=== PATIENT | male | born 1950 | race Caucasian/White ===

== ENCOUNTER 2017-01-26 07:20 | Day surgery (SDC) | payer OTHER ==
[2017-01-26] MEDS ORDERED: LIDOCAINE 1% 20 ML MDV ID ONE (07:51)
[2017-01-26] MEDS ORDERED: LIDOCAINE 2% 20 ML MDV ONE (07:51)
[2017-01-26] MEDS ORDERED: VERSED ONE (09:50)
[2017-01-26] MEDS ORDERED: LIDOCAINE HCL 2% LUER-JET ONE (09:50)
[2017-01-26] MEDS ORDERED: DIPRIVAN 20 ML VIAL IVP ONE (09:50)
[2017-01-26 12:17] VITALS: BP 133/69; TEMP 97.8
--- NOTE | 2017-01-26 15:18 | OP ---
INDICATIONS FOR PROCEDURE: 66 year old gentleman presents for colonoscopy examine. He has a history of abnormalis polyps with colonoscopy three years ago. Also has a history of heartburn, regurgitation. He had biopsies which were negative for Tran's three years. He presents now for endoscopy evaluation for heart burn. He tells that he feels better since getting back on PPI therapy three weeks ago. MEDICATIONS: SEE ANESTHESIA NOTES. PROCEDURE: 1. ENDOSCOPY WITH EDUAR BIOPSY, ESOPHAGEAL BIOPSY 2. COLONOSCOPY, SNARE POLYPECTOMY. REPORT: The risks, benefits, alternatives and limitations were discussed in detail with the patient. Informed consent was obtained. After adequate sedation was achieved, the video endoscope was introduced in the posterior pharynx and esophagus under direct vision and easily advanced down to the second portion of the duodenum. I then slowly withdrew. The duodenal mucosa appeared unremarkable as did the duodenal bulb. The antrum body is unremarkable. The scope was retroflexed to look at the cardia and fundus which was unremarkable. Two biopsies from the antral wall and body obtained for H.Pylori testing. There is minimal erythema present. The scope was anteflexed and withdrawn back through the esophagus there were slight irregularities to it otherwise it was right at the GE junction at the diaphragmatic hiatus. Biopsies were obtained of the GE junction for histological view. The esophagus was otherwise unremarkable. The patient tolerated the procedure well with stable vital signs and pulse oximetry throughout. The patient's bed was turned and the digital rectal exam revealed good tone and no masses. Colonic scope was introduced into the rectum and was advanced under direct visual guidance to the cecum. The cecum was identified by the appendiceal orifice and the IC valve. I then slowly withdrew the scope in a circumferential manner and examined the mucosa quite carefully. I looked on the proximal distal side of the folds and flexure as best as possible. In the transverse colon there was a slightly raised 7mm polyp that I removed by snare technique. In the very distal transverse colon there was a 6mm polyp that I removed by snare technique and in the descending colon there was a 5-6mm sessile polyp that I destroyed using a snare. No other abnormalities noted except for the small internal hemorrhoids on the retroflex view of the anal canal. The prep was good and the withdraw time was 11 minutes and 56 seconds. The patient tolerated the procedure well with stable vital signs and pulse oximetry throughout. IMPRESSION: 1. Unremarkable upper endoscopy exam 2. Three colonic polyps removed 3. Small internal hemorrhoids RECOMMENDATIONS: 1. Strict reflux precautions 2. Await esophageal biopsy results to evaluate for Tran's. If there is evidence of Tran's then I suggested a repeat endoscopy examination again in three years for surveillance sooner if signs or symptoms indicate otherwise. 3. Continue daily Omeprazole for month or two and then he can use on PRN basis while continuing the reflux precautions. 4. Await H.Pylori and if it positive initiate treatment 5. Await colon pathology and if everything is benign as expected I recommend repeat colonoscopy examination again in three years if these are abnormal polyp otherwise surveillance examination again in five years. 6. We will see him back in the office as needed CC: Dr. Ramon QUACH
== END 2017-01-26 11:55 | disposition home or self-care (01) ==
LOC: SURG 07:20
PROVIDERS: ATTEND Internal Medicine Gastroenterology
DX: Z09 Encounter for follow-up examination after completed treatment for conditions other than malignant neoplasm (principal); Z86.010 Personal history of colon polyps; D12.3 Benign neoplasm of transverse colon; D13.1 Benign neoplasm of stomach; K21.9 Gastro-esophageal reflux disease without esophagitis; K64.8 Other hemorrhoids
CPT/HCPCS: 87339